=== PATIENT | female | born 1995 | race Caucasian/White ===

== ENCOUNTER 2022-01-18 17:48 | Outpatient (CLI) ==
[~2022-01-18] VITALS: Ht 152.4 cm; Wt 76.6 kg
[2022-01-18 18:24] VITALS: BP 124/73
[2022-01-18] MEDS ORDERED: KP P1TAB PO (18:27)
[2022-01-18] MEDS ORDERED: ONDA4TAB6 PO (18:27)
[2022-01-18] MEDS ORDERED: LACTATED RINGER'S 1000 ML IV STA (18:59)
[2022-01-18] MEDS ORDERED: LR 1,000 ML IV SCH (19:00)
[2022-01-18] MEDS ORDERED: PROMETHAZINE 25MG/ML 1ML VIAL IV PRN (19:00)
[2022-01-18 19:07] VITALS: BP 115/67
[2022-01-18 20:15] VITALS: BP 116/66
[2022-01-18 21:08] VITALS: BP 115/66
== END 2022-01-18 21:20 | disposition home or self-care (01) ==
LOC: M LDO 17:48
PROVIDERS: ATTEND Obstetrics & Gynecology
DX: O21.8 Other vomiting complicating pregnancy (principal); Z3A.27 27 weeks gestation of pregnancy
CPT/HCPCS: 59025; 96374; G0378; G0463; J2550

== ENCOUNTER → 2022-02-17 | Outpatient (CLI) | payer OTHER ==
[~2022-02-17] MED LIST: KP P1TAB PO; ONDA4TAB6 PO
[2022-02-17 15:24] LABS: HEMATOCRIT 34.8 % (36.0-47.0); MEAN CORPUSCULAR HEMOGLOBIN 32.9 pg (27.0-33.0); MEAN CORPUSCULAR HGB CONC 34.5 g/dl (32.0-36.5); MEAN CORPUSCULAR VOLUME 95.3 fl (80.0-96.0); PLATELET COUNT, AUTOMATED 231 10^3/uL (150-450); RED BLOOD COUNT 3.65 10^6/uL (4.00-5.40); WHITE BLOOD COUNT 14.5 10^3/uL (4.0-10.0)
[2022-02-17 17:05] LABS: GC DNA AMPLIFICATION NEGATIVE (NEGATIVE)
== END ==
LOC: M PLALAB 12:19
PROVIDERS: ATTEND Specialist
DX: Z34.03 Encounter for supervision of normal first pregnancy, third trimester (principal)

== ENCOUNTER → 2022-02-27 | Outpatient (CLI) | payer OTHER | LOC: M WHC 11:28 | PROVIDERS: ATTEND Specialist | DX: Z34.03 Encounter for supervision of normal first pregnancy, third trimester (principal); Z3A.32 32 weeks gestation of pregnancy ==

== ENCOUNTER → 2022-03-24 | Outpatient (REF) | payer OTHER | LOC: M SFHCWAGY 16:51 | PROVIDERS: ATTEND Obstetrics & Gynecology | DX: Z36.89 Encounter for other specified antenatal screening (principal); Z3A.36 36 weeks gestation of pregnancy ==